=== PATIENT | male | born 1960 | race Caucasian/White ===

== ENCOUNTER 2016-03-26 05:29 | Emergency (ER) | payer OTHER ==
[2016-03-26] MEDS ORDERED: OXYCODONE HCL 5 MG TABLET ONE (06:05)
[2016-03-26] MEDS ORDERED: CLINDAMYCIN PHOSPHATE 600 MG/4 ML VIAL ONE (06:44)
[2016-03-26] MEDS ORDERED: SODIUM CHLORIDE 0.9% 50 ML IV ONE (06:44)
[2016-03-26] MEDS ORDERED: LACTATED RINGERS 1,000 ML ONE (06:44)
[2016-03-26 07:20] LABS: ABSOLUTE NEUTROPHIL COUNT 10.9 K/mm3 (1.8-7.7); BASO # 0.1 K/mm3 (0.0-0.2); BASO % 0.8 % (0.2-1.0); EOS # 0.5 (0.0-0.5); EOS % 3.4 % (0.9-2.9); HEMATOCRIT 42.9 % (32.0-52.0); HEMOGLOBIN 14.4 gm/l (14.0-18.0); IMM NEUT # 0.1 K/mm3 (0-0.2); IMM NEUT% 0.4 % (0-1); LYMPH # 2.9 (1.0-4.8); LYMPH % 18.3 % (15-45); MEAN CELL VOLUME 89.2 fl (80.0-94.0); MEAN CORPUSCULAR HEMOGLOBIN 29.9 pg (27.0-31.0); MEAN CORPUSCULAR HGB CONC 33.6 g/dl (33.0-37.0); MEAN PLATELET VOLUME 11.4 fl (7.4-10.4); MONO # 1.2 (0.0-0.8); MONO % 7.4 % (4-12); NEUT % 69.7 % (43-75); PLATELET COUNT 257 K/mm3 (130-400)
[2016-03-26 07:33] LABS: INR 0.99; PROTHROMBIN TIME 10.4 SECONDS (9.3-11.4)
[2016-03-26 07:35] LABS: C-REACTIVE PROTEIN 1.3 mg/dl (<1.0); CALCIUM 9.4 mg/dL (8.6-10.3)
[2016-03-26] MEDS ORDERED: FENTANYL 100 MCG/2 ML VIAL ONE (07:39)
--- NOTE | 2016-03-26 07:58 | RAD ---
FINGER RIGHT HISTORY: Thumb pain after injury. COMPARISONS: None. FINDINGS: 3 views of the right thumb were performed demonstrating normal bony mineralization. The visualized osseous structures are grossly intact with no definitive fracture seen. The alignment is appropriate. There are mild hypertrophic changes seen involving the radial aspect of the distal first metacarpal. No focal soft tissue abnormalities are seen. IMPRESSION: 1. Hypertrophic changes of the medial distal first metacarpal. 2. No definitive fracture visualized.
== END 2016-03-26 09:27 | disposition home or self-care (01) ==
LOC: ED 05:29
DX: L03.011 Cellulitis of right finger (principal); F17.210 Nicotine dependence, cigarettes, uncomplicated
CPT/HCPCS: 83605; 86141; 85025; 82550; 80048; 85610; 73140; 96375; 99283 ×2; 96374; J3010; A9270; J7120; J7050